=== PATIENT | male | born 1995 | race Caucasian/White ===

== ENCOUNTER 2019-01-12 21:22 | Emergency (ER) | payer BC ==
--- NOTE | 2019-01-12 21:50 | ED ---
Neurological HPI - HPI Summary HPI Summary: This patient is a 23 year old M brought in by ambulance accompanied by his fianc to ED with a chief complaint of seizure since [employer]. Per kelsey, her mother found the patient laying on the floor in a hallway at the gym in the middle of a workout and was pallor. He was responsive then, but then he tried to stand up but fell again, face first, causing his facial abrasions. Per the fianc, he started shaking and seizing for about 1-2 minutes and was stiff- bodied. Fikrystin denies biting of tongue or froth, but reports blood was coming out of his mouth. After he stopped shaking, it took him about 30 seconds to become responsive again. Per the patient, he doesnt remember falling the first time before he was found on the ground. The patient rates the pain 6/10 in severity. Symptoms aggravated by nothing. Symptoms alleviated by nothing. Last had ETOH on 01/09. PMHx of two possible seizures (1 year and 1.5 years ago) and was not seen for these episodes. - History of Current Complaint Chief Complaint: EDSeizure Stated Complaint: SEIZURE W/FALL Time Seen by Provider: 01/12/19 21:31 Hx Obtained From: Patient Onset/Duration: Sudden Onset, Started hours ago, Resolved Timing: Sudden Onset Current Severity: Moderate Pain Intensity: 6 Pain Scale Used: 0-10 Numeric Aggravating: Nothing Alleviating: Nothing Associated Signs and Symptoms: Positive: Seizure - Allergy/Home Medications Allergies/Adverse Reactions: Allergies Allergy/AdvReac Type Severity Reaction Status Date / Time MS Clavulanic Acid Allergy Severe Altered Verified 09/22/13 17:45 [From Augmentin] Mental Status bupropion [From Wellbutrin] Allergy Shakes Verified 01/12/19 21:35 PMH/Surg Hx/FS Hx/Imm Hx Endocrine/Hematology History: Denies: Hx Diabetes Cardiovascular History: Denies: Hx Coronary Artery Disease, Hx Hypertension Psychiatric History: Denies: Hx of Violent Episodes Against Others Infectious Disease History: No Infectious Disease History: Denies: Traveled Outside the [place] in Last 30 Days - Family History Known Family History: Negative: Cardiac Disease, Hypertension, Diabetes - Social History Alcohol Use: Occasionally Substance Use Type: Reports: None Smoking Status (MU): Light Every Day Tobacco Smoker Review of Systems Positive: Other - facial abrasions, some blood was coming out of the mouth; fiance denies froth or biting of tongue Positive: Other - pallor, facial abrasions Neurological: Other - seizure, full-bodied stiffness All Other Systems Reviewed And Are Negative: Yes Physical Exam - Summary Physical Exam Summary: VITAL SIGNS: Reviewed. GENERAL: Patient is a well-developed and nourished MALE who is lying comfortable in the stretcher. Patient is not in any acute respiratory distress. HEAD AND FACE: No ecchymosis or skull depressions. No sinus tenderness. Some facial abrasions over the nose. EYES: PERRLA, EOMI x 2, No injected conjunctiva, no nystagmus. EARS: Hearing grossly intact. Ear canals and tympanic membranes are within normal limits. MOUTH: Oropharynx within normal limits. NECK: Supple, trachea is midline, no adenopathy, no JVD, no carotid bruit, no c- spine tenderness, neck with full ROM. CHEST: Symmetric, no tenderness at palpation LUNGS: Clear to auscultation bilaterally. No wheezing or crackles. CVS: Regular rate and rhythm, S1 and S2 present, no murmurs or gallops appreciated. ABDOMEN: Soft, non-tender. No signs of distention. No rebound no guarding, and no masses palpated. Bowel sounds are normal. EXTREMITIES: FROM in all major joints, no edema, no cyanosis or clubbing. NEURO: Alert and oriented x 3. No acute neurological deficits. Speech is normal and follows commands. SKIN: Dry and warm. Some facial abrasions over the nose. GCS: 15 Triage Information Reviewed: Yes Vital Signs On Initial Exam: Initial Vitals Temp Pulse Resp BP Pulse Ox 98 F 104 16 120/79 96 01/12/19 21:26 01/12/19 21:26 01/12/19 21:26 01/12/19 21:26 01/12/19 21:26 Vital Signs Reviewed: Yes Diagnostics - Vital Signs Vital Signs Temp Pulse Resp BP Pulse Ox 01/12/19 21:26 98 F 104 16 120/79 96 - Laboratory Result Diagrams: 01/12/19 22:34 01/12/19 22:34 Lab Statement: Any lab studies that have been ordered have been reviewed, and results considered in the medical decision making process. - CT Brain CT CT Interpretation Completed By: Radiologist Summary of CT Findings: Normal noncontrast head CT. ED physician has reviewed this radiology report. - EKG 215 Cardiac Rate: NL - 95 BPM EKG Rhythm: Sinus Rhythm Summary of EKG Findings: Normal axis. Normal interval. No ischemic changes. Course/Dx - Course Assessment/Plan: This patient is a 23 year old M brought in by ambulance accompanied by his fianc to ED with a chief complaint of seizure since [employer]. Per fianc, her mother found the patient laying on the floor in a hallway at the gym in the middle of a workout and was pallor. He was responsive then, but then he tried to stand up but fell again, face first, causing his facial abrasions. Per the fianc, he started shaking and seizing for about 1-2 minutes and was stiff-bodied. Fiance denies biting of tongue or froth, but reports blood was coming out of his mouth. After he stopped shaking, it took him about 30 seconds to become responsive again. Per the patient, he doesnt remember falling the first time before he was found on the ground. Brain CT reveals normal noncontrast head CT. EKG done at 2150 reveals NSR at 95 BPM and is a normal EKG. This patient will be discharged with dx of seizure and follow up with neurologist in 1-2 days. He is instructed not to drive, play sports, or go to the gym until cleared by neurology. Patient understands and agrees with this plan. - Differential Dx Differential Diagnoses Neuro: Positive: Other - seizure - Diagnoses Provider Diagnoses: Seizure Discharge - Sign-Out/Discharge Documenting (check all that apply): Patient Departure - discharge Patient Received Moderate/Deep Sedation with Procedure: No - Discharge Plan Condition: Stable Disposition: HOME Prescriptions: levETIRAcetam TAB* [Keppra TAB*] 500 mg PO BID #60 tab Patient Education Materials: New-Onset Seizure in Adults (ED) Referrals: Sabiha Carroll MD [Medical Doctor] - (Follow up in 1-2 days.) Additional Instructions: RETURN TO THE EMERGENCY DEPARTMENT FOR CHANGING OR WORSENING SYMPTOMS. FOLLOW UP WITH NEUROLOGIST IN 1-2 DAYS. No driving sports or gym until cleared by neurologist. - Attestation Statements Document Initiated by Scribe: Yes Documenting Scribe: Rico Alejo Provider For Whom Scribe is Documenting (Include Credential): Ursula Ken MD Scribe Attestation: I, Rico Melo, scribed for Ursula Ken MD on 01/12/19 at 2328. Status of Scribe Document: Ready
[2019-01-12] MEDS ORDERED: levETIRAcetam IV* 1,000 MG in NS 0.9% 100 ML* 100 ML IVPB ONE (22:00)
[2019-01-12] MEDS ORDERED: levETIRAcetam IV* 1,000 MG in NS 0.9% 100 ML* 100 ML IVPB SCH (22:00)
[2019-01-12 22:40] LABS: ABS Basophils 0.1 10^3/ul (0-0.2); ABS Eosinophils 0 10^3/ul (0-0.6); ABS Lymphocytes 1.4 10^3/ul (1.0-4.8); ABS Monocytes 0.6 10^3/ul (0-0.8); ABS Neutrophils 15.5 10^3/ul (1.5-7.7); ABS Nucleated RBC 0 10^3/ul; Eosinophil % 0.2 %; Hematocrit 47 % (42-52); Hemoglobin 15.6 g/dl (14.0-18.0); Lymphocyte % 7.8 %; Mean Corpuscular HGB Conc 34 g/dl (31-36); Mean Corpuscular Hemoglobin 29 pg (27-31); Mean Corpuscular Volume 86 fL (80-94); Mean Platelet Volume 9.5 fL (7.4-10.4); Nucleated Red Blood Cells % 0; Platelet Count 224 10^3/ul (150-450); Red Blood Count 5.42 10^6/ul (4.00-5.40); Red Cell Distribution Width 13 % (10.5-15); White Blood Count 17.6 10^3/ul (3.5-10.8)
[2019-01-12 22:58] LABS: Albumin 4.5 g/dL (3.2-5.2); Albumin/Globulin Ratio 1.7 (1-3); BUN/Creatinine Ratio 21.8 (8-20); Calcium 9.2 mg/dL (8.6-10.3); EGFR African American 130.4 (>60); EGFR Non-African American 107.8 (>60); Globulin 2.7 g/dL (2-4); Magnesium 2.4 mg/dL (1.9-2.7); Total Bilirubin 0.3 mg/dL (0.2-1.0); Total Protein 7.2 g/dL (6.4-8.9)
[2019-01-12 23:13] LABS: Potassium 4.2 mmol/L (3.5-5.0)
[2019-01-12 23:19] LABS: Urine Appearance Cloudy; Urine Bilirubin Negative (Negative); Urine Blood Negative (Negative); Urine Color Yellow; Urine Glucose Negative (Negative); Urine Ketones Negative (Negative); Urine Nitrite Negative (Negative); Urine Protein Negative (Negative); Urine Specific Gravity 1.026 (1.010-1.030); Urine Urobilinogen Negative (Negative)
[2019-01-12 23:42] VITALS: BP 122/84
== END 2019-01-12 23:42 | disposition home or self-care (01) ==
LOC: ED 21:22
DX: R56.9 Unspecified convulsions (principal); S00.31XA Abrasion of nose, initial encounter; W18.30XA Fall on same level, unspecified, initial encounter; Y92.89 Other specified places as the place of occurrence of the external cause; Z88.1 Allergy status to other antibiotic agents; Z88.8 Allergy status to other drugs, medicaments and biological substances; F17.200 Nicotine dependence, unspecified, uncomplicated
CPT/HCPCS: 36415; 70450; 80053; 81003; 83735; 85025; 93005; 96365; 99283

== ENCOUNTER 2019-08-28 15:37 | Emergency (ER) | payer BC, OTHER ==
[2019-08-28] MEDS ORDERED: Tetan/Diph/Pertus SYR(Tdap)* 0.5 ML SYR(BOOSTRIX) use SYR contains LATEX IM ONE (16:27)
--- NOTE | 2019-08-28 16:40 | ED ---
Laceration/Wound HPI - HPI Summary HPI Summary: Pt. is a 24 y.o male who presents to the ER for finger laceration that occurred today. Pt. works in housekeeping in the hospital and states he was in the dirty utility room when his 4th digit of right hand was pinched in a door hinge. Unaware of last tetanus. Sxs are mild in severity. No current modifying factors. - History of Current Complaint Stated Complaint: RT RING FINGER INJ PER PT Time Seen by Provider: 08/28/19 15:45 Hx Obtained From: Patient Pain Intensity: 0 - Allergy/Home Medications Allergies/Adverse Reactions: Allergies Allergy/AdvReac Type Severity Reaction Status Date / Time amoxicillin [From Augmentin] Allergy Altered Verified 08/28/19 15:44 Mental Status bupropion [From Wellbutrin] Allergy Shakes Verified 01/12/19 21:35 clavulanic acid Allergy Altered Verified 08/28/19 15:44 [From Augmentin] Mental Status Home Medications: Home Medications NK [No Home Medications Reported] 08/28/19 [History Confirmed 08/28/19] PMH/Surg Hx/FS Hx/Imm Hx Previously Healthy: Yes Endocrine/Hematology History: Denies: Hx Diabetes Cardiovascular History: Reports: Hx Hypertension - TENDS TO RUN HIGH BUT NOT TREATED Denies: Hx Coronary Artery Disease, Hx Pacemaker/ICD Sensory History: Denies: Hx Hearing Aid Psychiatric History: Denies: Hx Panic Disorder, Hx of Violent Episodes Against Others Infectious Disease History: No Infectious Disease History: Denies: Traveled Outside the [place] in Last 30 Days - Family History Known Family History: Positive: Non-Contributory Negative: Cardiac Disease, Hypertension, Diabetes - Social History Occupation: Employed Full-time Lives: With Family Alcohol Use: Occasionally Substance Use Type: Reports: None Smoking Status (MU): Light Every Day Tobacco Smoker Review of Systems Positive: Other - laceration to 4th digit right hand All Other Systems Reviewed And Are Negative: Yes Physical Exam Triage Information Reviewed: Yes Vital Signs On Initial Exam: Initial Vitals Temp Pulse Resp BP Pulse Ox 98.2 F 72 16 140/99 96 08/28/19 15:40 08/28/19 15:40 08/28/19 15:40 08/28/19 15:40 08/28/19 15:40 Vital Signs Reviewed: Yes Appearance: Positive: Well-Appearing - Pt. sitting on chair in NAD. Skin: Positive: Warm, Dry Head/Face: Positive: Normal Head/Face Inspection Eyes: Positive: Normal, EOMI Neck: Positive: Supple Musculoskeletal: Positive: Other - Superficial <.5cm skin flap noted to the distal lateral aspect of 4th digit of right hand. No active bleeidng. Neurological: Positive: Normal, CN Intact II-III Psychiatric: Positive: Affect/Mood Appropriate Procedures - Procedure Summary Procedure Summary: Wound care: <.5cm superficial skin flap. Wound cleaned with hibiclens and saline. Very thin hanging skin flap that was snipped off per pt. requesting. Dressing placed. Pt. tolerated well. - Sedation Patient Received Moderate/Deep Sedation with Procedure: No Diagnostics - Vital Signs Vital Signs Temp Pulse Resp BP Pulse Ox 08/28/19 15:40 98.2 F 72 16 140/99 96 - Laboratory Lab Statement: Any lab studies that have been ordered have been reviewed, and results considered in the medical decision making process. Laceration Repair Course/Dx - Course Course Of Treatment: Pt. with superficial skin flap that was treated as above. Tetanus updated. To keep wound clean and dry. To f.u with pcp or return to ER for signs of infection. - Clinical Impression Provider Diagnoses: Flap laceration of skin Discharge ED - Sign-Out/Discharge Documenting (check all that apply): Patient Departure - Discharge Plan Condition: Good Disposition: HOME Patient Education Materials: Acute Wound Care (ED) Referrals: Abdoul Bermudez MD [Primary Care Provider] - Additional Instructions: Follow up with PCP if needed Keep wound clean and dry Return to ER for redness, swelling, or drainage - Billing Disposition and Condition Condition: GOOD Disposition: Home
[2019-08-28 16:52] VITALS: BP 140/98
== END 2019-08-28 16:52 | disposition home or self-care (01) ==
LOC: ED 15:37
DX: S61.214A Laceration without foreign body of right ring finger without damage to nail, initial encounter (principal); Z23 Encounter for immunization; W23.0XXA Caught, crushed, jammed, or pinched between moving objects, initial encounter; Y92.238 Other place in hospital as the place of occurrence of the external cause; Y99.0 Civilian activity done for income or pay; I10 Essential (primary) hypertension; F17.200 Nicotine dependence, unspecified, uncomplicated; Z88.1 Allergy status to other antibiotic agents; Z88.8 Allergy status to other drugs, medicaments and biological substances
CPT/HCPCS: 90471; 90715; 99282

== ENCOUNTER 2019-11-14 11:39 | Emergency (ER) | payer BC, OTHER ==
[2019-11-14 13:19] LABS: ABS Eosinophils 0.1 10^3/ul (0-0.6); ABS Lymphocytes 1.2 10^3/ul (1.0-4.8); ABS Monocytes 0.4 10^3/ul (0-0.8); ABS Neutrophils 3.4 10^3/ul (1.5-7.7); Eosinophil % 2.8 %; Hematocrit 46 % (42-52); Hemoglobin 16.1 g/dL (14.0-18.0); Lymphocyte % 23.3 %; Mean Corpuscular HGB Conc 35 g/dL (31-36); Mean Corpuscular Hemoglobin 30 pg (27-31); Mean Corpuscular Volume 86 fL (80-94); Mean Platelet Volume 9.4 fL (7.4-10.4); Nucleated Red Blood Cells % 0.1; Platelet Count 187 10^3/uL (150-450); Red Blood Count 5.31 10^6 /uL (4.18-5.48); Red Cell Distribution Width 13 % (10-15); White Blood Count 5.1 10^3/uL (3.5-10.8)
[2019-11-14 13:33] LABS: ALT 22 U/L (7-52); AST 15 U/L (13-39); Albumin 4.6 g/dL (3.2-5.2); Albumin/Globulin Ratio 1.6 (1-3); Alkaline Phosphatase 56 U/L (34-104); Anion Gap 6 mmol/L (2-11); BUN/Creatinine Ratio 11.5 (8-20); Blood Urea Nitrogen 10 mg/dL (6-24); CO2 Carbon Dioxide 26 mmol/L (22-32); Calcium 9.6 mg/dL (8.6-10.3); Chloride 103 mmol/L (101-111); EGFR African American 129.4 (>60); EGFR Non-African American 106.9 (>60); Globulin 2.9 g/dL (2-4); Glucose 87 mg/dL (70-100); Potassium 3.6 mmol/L (3.5-5.0); Sodium 135 mmol/L (135-145); Total Protein 7.5 g/dL (6.4-8.9)
[2019-11-14] MEDS ORDERED: NS 0.9% 1000 ML** 1,000 ML IV ONE (13:43)
--- NOTE | 2019-11-14 13:52 | ED ---
Abdominal Pain/Male - HPI Summary HPI Summary: This pt is a 24 y/o male presenting to [facility] c/o abdominal pain now localized to the RLQ. Pt reports he felt abdominal discomfort yesterday and felt it was off. He notes at work his gave him laxatives because she thought it was constipation and had diarrhea. Last night pt states fever of 101.0 F. Today his abd pain has localized to his right lower quadrant. His abd pain is aggravated with ambulation. He reports associated symptoms of decreased appetite. Denies dysuria, hematuria, testicular pain, nausea, vomiting. Pt states he has never had this in the past. Denies taking any medications. He notes occasional alcohol use. Medications reviewed. Allergies noted. - History of Current Complaint Chief Complaint: EDAbdPain Stated Complaint: LOWER ABD PAIN Time Seen by Provider: 11/14/19 13:34 Hx Obtained From: Patient Onset/Duration: Lasting Days - 1, Still Present Timing: Lasting Days - 1 Severity Currently: Moderate Pain Intensity: 5 Pain Scale Used: 0-10 Numeric Location: Discrete At: RLQ Radiates: No Aggravating Factor(s): Other: - ambulation Alleviating Factor(s): Nothing Associated Signs And Symptoms: Positive: Fever, Diarrhea. Negative: Nausea, Vomiting, Other - NEGATIVE: dysuria, hematuria, testicular pain. - Allergies/Home Medications Allergies/Adverse Reactions: Allergies Allergy/AdvReac Type Severity Reaction Status Date / Time amoxicillin [From Augmentin] Allergy Altered Verified 11/14/19 11:43 Mental Status bupropion [From Wellbutrin] Allergy Shakes Verified 11/14/19 11:43 clavulanic acid Allergy Altered Verified 11/14/19 11:43 [From Augmentin] Mental Status PMH/Surg Hx/FS Hx/Imm Hx Endocrine/Hematology History: Denies: Hx Diabetes Cardiovascular History: Reports: Hx Hypertension - TENDS TO RUN HIGH BUT NOT TREATED Denies: Hx Coronary Artery Disease, Hx Pacemaker/ICD Sensory History: Denies: Hx Hearing Aid Psychiatric History: Denies: Hx Panic Disorder, Hx of Violent Episodes Against Others - Surgical History Surgical History: None Infectious Disease History: No Infectious Disease History: Denies: Traveled Outside the [place] in Last 30 Days - Family History Known Family History: Negative: Cardiac Disease, Hypertension, Diabetes - Social History Alcohol Use: Occasionally Substance Use Type: Reports: None Smoking Status (MU): Light Every Day Tobacco Smoker Review of Systems Constitutional: Other - POSITIVE: decreased appetite Positive: Fever Positive: Abdominal Pain, Diarrhea. Negative: Vomiting, Nausea Negative: dysuria, hematuria, other - NEGATIVE: testicular pain All Other Systems Reviewed And Are Negative: Yes Physical Exam - Summary Physical Exam Summary: Constitutional: Well-developed, Well-nourished, Alert. (-) Distressed Skin: Warm, Dry HENT: Normocephalic; Atraumatic Eyes: Conjunctiva normal Neck: Musculoskeletal ROM normal neck. (-) JVD, (-) Stridor, (-) Tracheal deviation Cardio: Rhythm regular, rate normal, Heart sounds normal; Intact distal pulses; The pedal pulses are 2+ and symmetric. Radial pulses are 2+ and symmetric. (-) Murmur Pulmonary/Chest wall: Effort normal. (-) Respiratory distress, (-) Wheezes, (-) Rales Abd: Soft, Tenderness on McBurney's point, Positive Rovsing's sign, No rebound or guarding, (-) Distension Musculoskeletal: (-) Edema Lymph: (-) Cervical adenopathy Neuro: Alert, Oriented x3 Psych: Mood and affect Normal Triage Information Reviewed: Yes Vital Signs On Initial Exam: Initial Vitals Temp Pulse Resp BP Pulse Ox 97.5 F 74 16 140/95 98 11/14/19 11:41 11/14/19 11:41 11/14/19 11:41 11/14/19 11:41 11/14/19 11:41 Vital Signs Reviewed: Yes Procedures - Sedation Patient Received Moderate/Deep Sedation with Procedure: No Diagnostics - Vital Signs Vital Signs Temp Pulse Resp BP Pulse Ox 11/14/19 11:41 97.5 F 74 16 140/95 98 - Laboratory Lab Results: Lab Results 11/14/19 11/14/19 Range/Units 12:55 12:55 WBC 5.1 (3.5-10.8) 10^3/uL RBC 5.31 (4.18-5.48) 10^6 /uL Hgb 16.1 (14.0-18.0) g/dL Hct 46 (42-52) % MCV 86 (80-94) fL MCH 30 (27-31) pg MCHC 35 (31-36) g/dL RDW 13 (10-15) % Plt Count 187 (150-450) 10^3/uL MPV 9.4 (7.4-10.4) fL Neut % (Auto) 65.7 % Lymph % (Auto) 23.3 % [place] % (Auto) 8.0 % Eos % (Auto) 2.8 % Baso % (Auto) 0.2 % Absolute Neuts (auto) 3.4 (1.5-7.7) 10^3/ul Absolute Lymphs (auto) 1.2 (1.0-4.8) 10^3/ul Absolute Monos (auto) 0.4 (0-0.8) 10^3/ul Absolute Eos (auto) 0.1 (0-0.6) 10^3/ul Absolute Basos (auto) 0.0 (0-0.2) 10^3/ul Absolute Nucleated RBC 0.0 10^3/ul Nucleated RBC % 0.1 Sodium 135 (135-145) mmol/L Potassium 3.6 (3.5-5.0) mmol/L Chloride 103 (101-111) mmol/L Carbon Dioxide 26 (22-32) mmol/L Anion Gap 6 (2-11) mmol/L BUN 10 (6-24) mg/dL Creatinine 0.87 (0.67-1.17) mg/dL Est GFR ( Amer) 129.4 (>60) Est GFR (Non-Af Amer) 106.9 (>60) BUN/Creatinine Ratio 11.5 (8-20) Glucose 87 (70-100) mg/dL Calcium 9.6 (8.6-10.3) mg/dL Total Bilirubin 0.80 (0.2-1.0) mg/dL AST 15 (13-39) U/L ALT 22 (7-52) U/L Alkaline Phosphatase 56 (34-104) U/L C-Reactive Protein 102.50 H (<8.01) mg/L Total Protein 7.5 (6.4-8.9) g/dL Albumin 4.6 (3.2-5.2) g/dL Globulin 2.9 (2-4) g/dL Albumin/Globulin Ratio 1.6 (1-3) Lipase < 10 L (11.0-82.0) U/L Result Diagrams: 11/14/19 12:55 11/14/19 12:55 Lab Statement: Any lab studies that have been ordered have been reviewed, and results considered in the medical decision making process. - CT Abdomen/Pelvis CT CT Interpretation Completed By: Radiologist Summary of CT Findings: IMPRESSION: Normal appendix. No acute CT pathology of the visualized abdomen or pelvis. Dr. Mckeon has reviewed this report. Abdominal Pain Male Course/Dx - Diagnoses Provider Diagnoses: RLQ abdominal pain, Fever - Provider Notifications Discussed Care Of Patient With: Nola Alejo Time Discussed With Above Provider: 14:40 Instructed by Provider To: Other - Discussed the case with Dr. Alejo, surgeon, who recommends to have the patient come back for a 24 hour recheck and states pt does not need to be in observation overnight. Discharge ED - Sign-Out/Discharge Documenting (check all that apply): Patient Departure - Discharge home - Discharge Plan Condition: Stable Disposition: HOME Patient Education Materials: Acute Abdominal Pain (ED) Referrals: Abdoul Bermudez MD [Primary Care Provider] - Additional Instructions: Take Tylenol and Motrin for the pain. Come back right away to the Emergency Department if you have severe worsening abdominal pain or can't walk due to pain. Return to the ED tomorrow (11/15/19) to see Dr. Mckeon who starts working at 7:00 AM until 5:00 PM to get an abdominal recheck. PLEASE RETURN TO EMERGENCY DEPARTMENT FOR ANY NEW OR WORSENING SYMPTOMS. - Attestation Statements Document Initiated by Scribe: Yes Documenting Scribe: Toña Zuluaga Provider For Whom Scribe is Documenting (Include Credential): Maxi Mckeon MD Scribe Attestation: IToña, scribed for Maxi Mckeon MD on 11/14/19 at 1447. Status of Scribe Document: Ready
[2019-11-14] MEDS ORDERED: Iohexol 300* (CONTRAST) 10 ML SDV IV ONE (13:54)
[2019-11-14 15:50] VITALS: BP 96/78
== END 2019-11-14 15:00 | disposition home or self-care (01) ==
LOC: ED 11:39
DX: R10.31 Right lower quadrant pain (principal); R50.9 Fever, unspecified; R19.7 Diarrhea, unspecified; I10 Essential (primary) hypertension; Z88.1 Allergy status to other antibiotic agents; Z88.0 Allergy status to penicillin; Z88.8 Allergy status to other drugs, medicaments and biological substances; F17.200 Nicotine dependence, unspecified, uncomplicated
CPT/HCPCS: 36415; 74177; 80053; 83690; 85025; 86140; 99282; Q9967